=== PATIENT | male | born 1965 | race Caucasian/White ===

== ENCOUNTER 2018-05-18 07:16 | Day surgery (SDC) | payer OTHER ==
[2018-05-18] MEDS ORDERED: LIDOCAINE 2% 100 MG/5 ML UJET TP ONE (08:38)
[2018-05-18] MEDS ORDERED: KETOROLAC 30 MG/ML VIAL ONE (08:38)
== END 2018-05-18 09:43 | disposition home or self-care (01) ==
LOC: MOR 07:16 → MMU 07:19 → MOR 09:43
PROVIDERS: ATTEND Internal Medicine Gastroenterology
DX: D12.7 Benign neoplasm of rectosigmoid junction (principal); D12.4 Benign neoplasm of descending colon; D12.3 Benign neoplasm of transverse colon; K57.30 Diverticulosis of large intestine without perforation or abscess without bleeding; I10 Essential (primary) hypertension; E11.9 Type 2 diabetes mellitus without complications; F10.10 Alcohol abuse, uncomplicated
CPT/HCPCS: 45385; 82948; J1885